=== PATIENT | female | born 2000 | race African-American/Black ===

== ENCOUNTER 2021-05-31 07:14 | Emergency (ER) | payer SELFPAY ==
--- OUTSIDE RECORDS SUMMARY | 2021-05-31 07:18 | XMS REPORT | Continuity of Care Document ---
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 pneumothorax. There is no definite acute osseous abnormality. IMPRESSION: No radiographic evidence of acute cardiopulmonary process. at 5227 Reported and signed by: Oli Oneil M.D. CC: Antwon Raya MD Technologist: Arelis Persaud Trnscrd Date/Time/By: 10/08/2020 (0411) : By: [email or web address] PAGE 1 Signed Report FAX: Antwon Raya MD [place]: St: PRE Name: ANKIT SCHNEIDER [facility] : 2000 Age/S: 20/F [address] [facility] Unit #: [id number] Loc: E.ERS2 [place], [place]: [place] [address] Acct: [id number] Dis Date: Status: PRE ER PHONE #: [phone] Exam Date: 10/08/20202253 FAX #: [phone] Reason: truma EXAMS: CPT CODE: [id number] XR CHEST 1 V 61387 <Continued> Orig Print D/T: S:10/08/2020 (0682) PAGE 2 Signed Report
[2021-05-31 07:41] LABS: Urine Blood Trace-intact (Negative); Urine Glucose Negative (Negative); Urine Protein Negative (Negative); Urine Specific Gravity >=1.030 (1.005-1.030)
[2021-05-31] MEDS ORDERED: DIPHENOX/ATROP SULF 1 TAB PO ONE (07:41)
[2021-05-31] MEDS ORDERED: ONDANSETRON 4 MG/2 ML VIAL ONE (07:41)
[2021-05-31] MEDS ORDERED: NA CHLORIDE 0.9% 1,000 ML ONE (07:41)
[2021-05-31 07:56] LABS: Absolute Lymphocytes (CBC) 0.5 K/uL (0.7-4.9); Hematocrit 37.8 % (36.0-45.0); Lymphocytes % 5.9 % (15.3-44.8); MPV 8.5 fL (7.6-11.3); RBC Red Blood Cell Count 4.99 M/uL (3.86-4.86)
[2021-05-31 08:09] LABS: Albumin 3.3 g/dL (3.4-5.0); Bilirubin Direct 0.2 mg/dL (0-0.2); Bilirubin Total 0.6 mg/dL (0.2-1.0); Potassium 3.6 mmol/L (3.5-5.1); Protein, Total 7.4 g/dL (6.4-8.2)
--- NOTE | 2021-05-31 08:32 | RAD REPORT ---
EXAM DESCRIPTION: CTAbdomen Pelvis W Contrast - 05/31/2021 8:25 am CLINICAL HISTORY: vomiting, diarrhea COMPARISON: No comparisons TECHNIQUE: CT of the abdomen and pelvis was performed. All CT scans are performed using dose optimization technique as appropriate and may include automated exposure control or mA/KV adjustment according to patient size. FINDINGS: Lower chest: No acute abnormality. Liver: No acute abnormality or suspicious lesions. Biliary: No biliary ductal dilatation. Stomach: No significant focal abnormality. Duodenum: No significant focal abnormality. Pancreas: No significant abnormality. Spleen: No significant abnormality. Adrenal: No suspicious lesions. Kidney/ureter: No hydronephrosis. No renal calculi. Retroperitoneum: No retroperitoneal adenopathy. Vascular: No aneurysm. Bowel: No significant focal abnormality.Normal appendix. Peritoneum: Pelvic free fluid which may be physiologic. Bladder: Grossly unremarkable. Reproductive: No adnexal masses. Bones: No acute fracture. Other: n/a IMPRESSION: No acute intra-abdominal or pelvic finding. Normal appendix. Free fluid in the pelvis is likely physiologic.
[2021-05-31 08:45] LABS: Urine Specific Gravity/Preg >1.030 (1.005-1.030)
[2021-05-31 08:50] LABS: SARS-COV-2 RT PCR NEGATIVE (NEGATIVE)
[2021-05-31 08:53] LABS: Urine Bacteria <20 /HPF (<20); Urine Mucus LIGHT /HPF (NONE SEEN); Urine RBC <5 /HPF (NONE SEEN)
[2021-05-31 08:54] LABS: Urine Amorphous Sediment 3+ /HPF (NONE SEEN)
--- NOTE | 2021-05-31 09:11 | ER ---
Nurse's Notes [facility] Name: Jf Jacobo Age: 20 yrs Sex: Female : 2000 Arrival Date: 05/31/2021 Time: 07:20 Bed 5 Private MD: Diagnosis: Vomiting;Diarrhea, unspecified;Dehydration Presentation: 05/31 07:28 Chief complaint: Patient states: dizzy n/v. Coronavirus screen: Vaccine status: Patient velasco reports being unvaccinated. Ebola Screen: Patient denies travel to an Ebola-affected area in the 21 days before illness onset. Initial Sepsis Screen: Does the patient meet any 2 criteria? RR > 20 per min. HR > 90 bpm. Does the patient have a suspected source of infection? No. Patient's initial sepsis screen is negative. Risk Assessment: Do you want to hurt yourself or someone else? Patient reports no desire to harm self or others. Onset of symptoms was May 31, 2021. 07:28 Method Of Arrival: Ambulatory 07:28 Acuity: RAFAEL 3 velasco Triage Assessment: 07:29 General: Appears in no apparent distress. Behavior is calm. Pain: Denies pain. velasco Historical: - Allergies: 07:29 No Known Allergies; velasco - Home Meds: 07:29 None [Active]; velasco - PMHx: 07:29 None; velasco - PSHx: 07:29 None; velasco - Immunization history:: Adult Immunizations up to date. - Social history:: Smoking status: Patient denies any tobacco usage or history of. - Family history:: not pertinent. - Hospitalizations: : No recent hospitalization is reported. Screenin:46 Abuse screen: Denies threats or abuse. Denies injuries from another. Nutritional ic1 screening: No deficits noted. Tuberculosis screening: No symptoms or risk factors identified. Fall Risk None identified. Assessment: 07:45 General: Appears in no apparent distress. Behavior is calm, cooperative. Pain: ic1 Complains of pain in abdomen. Neuro: No deficits noted. Cardiovascular: No deficits noted. Respiratory: No deficits noted. GI: Abdomen is flat, non-distended, Reports lower abdominal pain, upper abdominal pain, cramping, diarrhea, nausea, vomiting. : No deficits noted. EENT: No deficits noted. Derm: No deficits noted. Musculoskeletal: No deficits noted. 10:05 Reassessment: Patient appears in no apparent distress at this time. Patient is alert, ic1 oriented x 3, equal unlabored respirations, skin warm/dry/pink. Patient denies pain at this time. Patient states feeling better. Patient states symptoms have improved. Vital Signs: 07:28 BP 99 / 69; Pulse 123; Resp 20; Temp 98.6(O); Pulse Ox 100% on R/A; Weight 49.44 kg; velasco Height 5 ft. 3 in. (160.02 cm); 10:45 BP 137 / 73; Pulse 107; Resp 18; Pulse Ox 97% on R/A; ic1 07:28 Body Mass Index 19.31 (49.44 kg, 160.02 cm) velasco ED Course: 07:20 Patient arrived in ED. as 07:26 Reza Anderson MD is Attending Physician. rn 07:29 Triage completed. velasco 07:30 Brandan Javier RN is Primary Nurse. jl7 07:46 Patient has correct armband on for positive identification. Bed in low position. Call ic1 light in reach. Side rails up X2. 07:46 Inserted saline lock: 20 gauge in right antecubital area, using aseptic technique. ic1 Blood collected. 08:25 CT Abd/Pelvis - IV Contrast Only In Process Unspecified. EDMS Administered Medications: 07:59 Drug: NS 0.9% 1000 ml Route: IV; Rate: 1000 ml; Site: right antecubital; ic1 07:59 Drug: Zofran (Ondansetron) 4 mg Route: IVP; Site: right antecubital; ic1 07:59 Drug: LoMOTIL (diphenoxylate-atropine) 2 tabs Route: PO; ic1 09:13 Drug: Phenergan (promethazine) 12.5 mg Route: IVP; Site: right antecubital; ic1 Outcome: 09:10 Discharge ordered by . rn 09:43 Discharged to home ambulatory. ic1 09:43 Condition: stable 09:43 Discharge instructions given to patient, Instructed on discharge instructions, follow up and referral plans. Demonstrated understanding of instructions, follow-up care, medications, Prescriptions given X 1. 10:58 Patient left the ED. ss Signatures: Dispatcher [employer] EDMS Roxana Rolon Roman, MD MD rn Julian, Patience, RN RN ss Brandan Javier, RN RN jl7 Valery Bloom, RN RN Ashley Schulte, RN RN ic1
--- NOTE | 2021-05-31 09:11 | EDPHYS ---
Physician Documentation [facility] Name: Jf Jacobo Age: 20 yrs Sex: Female : 2000 Arrival Date: 05/31/2021 Time: 07:20 Bed 5 Private MD: ED Physician Reza Anderson HPI: 05/31 07:39 This 20 yrs old Black Female presents to ER via Ambulatory with complaints of rn Vomiting/Diarrhea. 07:39 The patient presents to the emergency department with nausea, vomiting, diarrhea. rn Onset: The symptoms/episode began/occurred this morning. Possible causes: unknown. The symptoms are aggravated by nothing. The symptoms are alleviated by nothing. Associated signs and symptoms: Pertinent positives: abdominal pain, diarrhea, nausea, vomiting, Pertinent negatives: GI bleeding. Severity of symptoms: At their worst the symptoms were moderate in the emergency department the symptoms are unchanged. The patient has not experienced similar symptoms in the past. The patient has not recently seen a physician. REports feels lightheaded and generalized weakness. Historical: - Allergies: 07:29 No Known Allergies; velasco - Home Meds: 07:29 None [Active]; velasco - PMHx: 07:29 None; velasco - PSHx: 07:29 None; velasco - Immunization history:: Adult Immunizations up to date. - Social history:: Smoking status: Patient denies any tobacco usage or history of. - Family history:: not pertinent. - Hospitalizations: : No recent hospitalization is reported. ROS: 07:39 Constitutional: Negative for fever, chills, and weight loss, Eyes: Negative for injury, rn pain, redness, and discharge, Neck: Negative for injury, pain, and swelling, Cardiovascular: Negative for chest pain, palpitations, and edema, Respiratory: Negative for shortness of breath, cough, wheezing, and pleuritic chest pain, Abdomen/GI: + for abd cramping/vomiting/diarrhea Back: Negative for injury and pain, : Negative for injury, bleeding, discharge, and swelling, MS/Extremity: Negative for injury and deformity, Skin: Negative for injury, rash, and discoloration, Neuro: Negative for headache, numbness, tingling, and seizure. Exam: 07:39 Constitutional: This is a well developed, well nourished patient who is awake, alert, rn and in no acute distress.Ambulatory to room without difficulty. Head/Face: Normocephalic, atraumatic. Eyes: Periorbital areas with no swelling, redness, or edema. Cardiovascular: Tachcyardic, regular. No pulse deficits. Respiratory: No increased work of breathing, no retractions or nasal flaring. Abdomen/GI: soft, non-tender Skin: Warm, dry MS/ Extremity: Pulses equal, no cyanosis. Neuro: Awake and alert, GCS 15 Vital Signs: 07:28 BP 99 / 69; Pulse 123; Resp 20; Temp 98.6(O); Pulse Ox 100% on R/A; Weight 49.44 kg; velasco Height 5 ft. 3 in. (160.02 cm); 10:45 BP 137 / 73; Pulse 107; Resp 18; Pulse Ox 97% on R/A; ic1 07:28 Body Mass Index 19.31 (49.44 kg, 160.02 cm) velasco MDM: 07:26 Patient medically screened. rn 09:09 Differential diagnosis: Nonspecific abd pain, gastritis, appendicitis, diverticulitis, rn viral gastroenteritis, gastroenteritis. Data reviewed: vital signs, nurses notes, lab test result(s), radiologic studies, CT scan, and as a result, I will discharge patient. Counseling: I had a detailed discussion with the patient and/or guardian regarding: the historical points, exam findings, and any diagnostic results supporting the discharge/admit diagnosis, lab results, radiology results, the need for outpatient follow up, to return to the emergency department if symptoms worsen or persist or if there are any questions or concerns that arise at home. Response to treatment: the patient's symptoms have markedly improved after treatment, and as a result, I will discharge patient. Special discussion: Based on the patient's Hx, exam, and Dx evaluation, there is no indication for emergent surgery or inpatient Tx. It is understood by the patient/guardian that if the Sx's persist or worsen they need to return immediately for re-evaluation. I discussed with the patient/guardian in detail that at this point there is no indication for admission to the hospital. It is understood, however, that if the symptoms persist or worsen the patient needs to return immediately for re-evaluation. ED course: NO acute findings on CT abdomen, UPT neg, COVID/Flu neg. Will dc home with prn zofran and return precautions, most likely viral, no indication for Abx. . 05/31 07:33 Order name: Basic Metabolic Panel; Complete Time: 08:33 rn 05/31 07:33 Order name: CBC with Diff rn 05/31 07:33 Order name: Hepatic Function; Complete Time: 08:33 rn 05/31 07:33 Order name: Lipase; Complete Time: 08:33 rn 05/31 07:33 Order name: COVID-19/FLU A+B (Document "Date of Onset" if Symptomatic); Complete Time: rn 08:55 05/31 07:33 Order name: Urine Microscopic Only; Complete Time: 08:55 rn 05/31 07:33 Order name: CT Abd/Pelvis - IV Contrast Only; Complete Time: 08:33 rn 05/31 07:41 Order name: Urine Dipstick-Ancillary; Complete Time: 08:06 EDOK 05/31 07:43 Order name: Urine --Ancillary (enter results); Complete Time: 08:55 05/31 10:52 Order name: CBC Smear Scan EDOK 05/31 07:33 Order name: IV Saline Lock; Complete Time: 07:58 rn 05/31 07:33 Order name: Labs collected and sent; Complete Time: 07:58 rn 05/31 07:33 Order name: Urine Dipstick-Ancillary (obtain specimen); Complete Time: 07:40 rn 05/31 07:33 Order name: Urine Test (obtain specimen); Complete Time: 07:40 rn Administered Medications: 07:59 Drug: NS 0.9% 1000 ml Route: IV; Rate: 1000 ml; Site: right antecubital; ic1 07:59 Drug: Zofran (Ondansetron) 4 mg Route: IVP; Site: right antecubital; ic1 07:59 Drug: LoMOTIL (diphenoxylate-atropine) 2 tabs Route: PO; ic1 09:13 Drug: Phenergan (promethazine) 12.5 mg Route: IVP; Site: right antecubital; ic1 Disposition Summary: 05/31/21 09:10 Discharge Ordered Location: Home rn Problem: new rn Symptoms: have improved rn Condition: Stable rn Diagnosis - Vomiting rn - Diarrhea, unspecified rn - Dehydration rn Followup: rn - With: Private Physician - When: As needed - Reason: Recheck today's complaints, Re-evaluation by your physician Discharge Instructions: - Discharge Summary Sheet rn - Dehydration, Adult rn - Diarrhea, Adult rn - Vomiting, Adult rn Forms: - Medication Reconciliation Form rn - Thank You Letter rn - Antibiotic rn peritoneal dialysis - Prescription Opioid Use rn Prescriptions: - ondansetron 4 mg Oral tablet,disintegrating - take 1 tablet by ORAL route every 8 hours As needed; 15 tablet; Refills: 0, rn Product Selection Permitted Signatures: Dispatcher [employer] Reza Falcon MD MD rn Au-StagerValery RN RN Ashley Schulte RN RN ic1
[2021-05-31] MEDS ORDERED: PROMETHAZINE INJ 25 MG/ML AMP ONE (09:13)
[2021-05-31 10:52] LABS: Blood Morphology Comment NOT SEEN (NOT SEEN); Platelet Estimate ADEQ; White Blood Cell Scan OK (OK)
[2021-05-31 14:24] VITALS: TEMP 98.6
[2021-05-31 14:25] VITALS: BP 137/73; O2SAT 97
== END 2021-05-31 10:58 | disposition home or self-care (01) ==
LOC: ER 07:14
DX: E86.0 Dehydration (principal); R19.7 Diarrhea, unspecified; Z20.822 Contact with and (suspected) exposure to COVID-19
CPT/HCPCS: 0240U; 36415; 74177; 80048; 80076; 81003; 81015; 81025; 83690; 85025; 96374; 96375; 99284; J2405; J2550; J7030; Q9967

== ENCOUNTER 2021-08-24 16:06 | Emergency (ER) | payer BC ==
[2021-08-24 16:51] LABS: Urine Blood Negative (Negative); Urine Glucose Negative (Negative); Urine Protein Negative (Negative); Urine pH 8.5 (5.0-7.0)
[2021-08-24 17:07] LABS: Absolute Lymphocytes (CBC) 1.5 K/uL (0.7-4.9); Hematocrit 35.5 % (36.0-45.0); Lymphocytes % 29.3 % (15.3-44.8); MPV 8.3 fL (7.6-11.3); RBC Red Blood Cell Count 4.86 M/uL (3.86-4.86)
[2021-08-24 17:22] LABS: Urine Bacteria <20 /HPF (<20); Urine Mucus 2+ /HPF (NONE SEEN); Urine RBC <5 /HPF (NONE SEEN)
[2021-08-24 17:35] LABS: BUN Blood Urea Nitrogen 8 mg/dL (7-18); Bicarbonate 24 mmol/L (21-32); Glucose Level 94 mg/dL (74-106); HCG, Quantitative 130841 mIU/mL (1-3); Potassium 4.2 mmol/L (3.5-5.1); Sodium Level 137 mmol/L (136-145)
--- NOTE | 2021-08-24 18:45 | RAD REPORT ---
EXAM DESCRIPTION: US - Matter Ger Tm 1 - 08/24/2021 6:38 pm CLINICAL HISTORY: ABD CRAMPING, Early . COMPARISON: No comparisons FINDINGS: A single gestational sac is seen within the uterus. The shape of the sac is within normal limits for gestational age. Within the sac is a single pole with crown-rump length of 5 mm, cor relating to estimated gestational age of 6 weeks 2 days. Estimated date of delivery is 04/17/2022. Heart rate is 120 BPM. The placenta is not yet developed / visualized due to early gestational age. The maternal adnexa and ovaries are within normal limits. Normal Doppler blood flow was demonstrated to both ovaries. IMPRESSION: Single live early intrauterine gestation with estimated gestational age of 6 weeks 2 day s, RASHIDA 04/17/2022. No unusual or unexpected finding.
--- NOTE | 2021-08-24 18:52 | ER ---
Nurse's Notes [facility] Name: Jf Jacobo Age: 20 yrs Sex: Female : 2000 Arrival Date: 08/24/2021 Time: 16:08 Bed 26 Private MD: Diagnosis: Vomiting;Abdominal pain, unspecified Presentation: 08/24 16:30 Chief complaint: Patient states: N/V and lower abdominal pain x 4-5days, approx 7 weeks ph , denies vaginal bleeding, reports more frequent urination than usual, denies burning. Coronavirus screen: Vaccine status: Patient reports being unvaccinated. Ebola Screen: No symptoms or risks identified at this time. Initial Sepsis Screen: Does the patient meet any 2 criteria? No. Patient's initial sepsis screen is negative. Does the patient have a suspected source of infection? No. Patient's initial sepsis screen is negative. Risk Assessment: Do you want to hurt yourself or someone else? Patient reports no desire to harm self or others. Onset of symptoms was August 24, 2021. 16:30 Method Of Arrival: Ambulatory ph 16:30 Acuity: RAFAEL 3 ph Historical: - Allergies: 16:31 No Known Allergies; ph - PMHx: 16:31 None; ph - PSHx: 16:31 None; ph - Immunization history:: Adult Immunizations unknown. - Social history:: Smoking status: Patient denies any tobacco usage or history of. Screenin:53 Abuse screen: Denies threats or abuse. Denies injuries from another. Nutritional ld1 screening: No deficits noted. Tuberculosis screening: No symptoms or risk factors identified. Fall Risk None identified. Assessment: 16:53 General: Appears in no apparent distress. comfortable, Behavior is calm, cooperative, ld1 appropriate for age. Pain: Denies pain. Neuro: Level of Consciousness is awake, alert, obeys commands, Oriented to person, place, time, situation. Cardiovascular: Capillary refill < 3 seconds Patient's skin is warm and dry. Rhythm is regular. Respiratory: Airway is patent Respiratory effort is even, unlabored. GI: Abdomen is flat, non-distended, Bowel sounds present X 4 quads. Abd is soft and non tender. : No signs and/or symptoms were reported regarding the genitourinary system. : Reports vaginal bleeding that is light flow. EENT: No signs and/or symptoms were reported regarding the EENT system. Derm: No signs and/or symptoms reported regarding the dermatologic system. Musculoskeletal: No signs and/or symptoms reported regarding the musculoskeletal system. Vital Signs: 16:30 BP 117 / 72; Pulse 107; Resp 18; Temp 98.4; Pulse Ox 100% on R/A; Weight 52.16 kg; ph Height 5 ft. 4 in. (162.56 cm); 16:53 BP 101 / 64; Pulse 102; Resp 18; Pulse Ox 100% on R/A; Pain 0/10; ld1 16:30 Body Mass Index 19.74 (52.16 kg, 162.56 cm) ph ED Course: 16:08 Patient arrived in ED. mr 16:23 Mika Cervantes NP is PHCP. pm1 16:23 Misha Mcdonald DO is Attending Physician. pm1 16:31 Triage completed. ph 16:32 Arm band placed on Patient placed in an exam room. ph 16:41 Dianna Pop, REX is Primary Nurse. ld1 16:53 Patient has correct armband on for positive identification. Placed in gown. Bed in low ld1 position. Call light in reach. Side rails up X2. school bus monitor on. Pulse ox on. NIBP on. Door closed. Noise minimized. Warm blanket given. 16:53 Urine Microscopic Only Sent. ld1 16:53 No provider procedures requiring assistance completed. ld1 16:59 Inserted saline lock: 20 gauge in left antecubital area, using aseptic technique. Blood mb7 collected. 16:59 Abo/rh Typing Sent. mb7 16:59 Quantitative Hcg Sent. mb7 16:59 CBC with Diff Sent. mb7 16:59 Basic Metabolic Panel Sent. mb7 18:39 Matter Eval Tm 1 In Process Unspecified. EDMS 19:15 IV discontinued, intact, bleeding controlled, No redness/swelling at site. ld1 Administered Medications: No medications were administered Outcome: 18:51 Discharge ordered by . pm1 19:15 Discharged to home ambulatory, with family. ld1 19:15 Condition: stable 19:15 Discharge instructions given to patient, Instructed on discharge instructions, follow up and referral plans. Demonstrated understanding of instructions, follow-up care. 19:15 Patient left the ED. ld1 Signatures: Dispatcher [employer] HELGA Lopez, Ava mr Mariana Min, RN RN Mika Garcia, [place] DISPATCHER pm1 Dianna Pop RN RN ld1 Li Ava mb7
--- NOTE | 2021-08-24 18:52 | EDPHYS ---
Physician Documentation [facility] Name: Jf Jacobo Age: 20 yrs Sex: Female : 2000 Arrival Date: 08/24/2021 Time: 16:08 Bed 26 Private MD: ED Physician Misha Mcdonald HPI: 08/24 16:30 This 20 yrs old Black Female presents to ER via Ambulatory with complaints of 7wks pm1 , Abdominal Pain, Vomiting. 16:30 The patient presents with abdominal pain suprapubic area. Onset: The symptoms/episode pm1 began/occurred 5 day(s) ago. The symptoms do not radiate. Associated signs and symptoms: Pertinent positives: increased urination, Pertinent negatives: nausea, vomiting, and diarrhea, chest pain, shortness of breath. The symptoms are described as crampy. Modifying factors: The symptoms are alleviated by nothing, the symptoms are aggravated by nothing. Severity of pain: in the emergency department the pain is unchanged. The patient has not experienced similar symptoms in the past. The patient has not recently seen a physician. . Historical: - Allergies: 16:31 No Known Allergies; ph - PMHx: 16:31 None; ph - PSHx: 16:31 None; ph - Immunization history:: Adult Immunizations unknown. - Social history:: Smoking status: Patient denies any tobacco usage or history of. ROS: 16:30 Constitutional: Negative for fever, chills, and weight loss. pm1 16:30 Cardiovascular: Negative for chest pain, palpitations, and edema, Respiratory: Negative for shortness of breath, cough, wheezing, and pleuritic chest pain. 16:30 Back: Negative for injury and pain, : Negative for injury, bleeding, discharge, and swelling, MS/Extremity: Negative for injury and deformity, Skin: Negative for injury, rash, and discoloration, Neuro: Negative for headache, weakness, numbness, tingling, and seizure. 16:30 Abdomen/GI: Positive for abdominal pain, of the suprapubic area, Negative for nausea, vomiting, and diarrhea. 16:30 All other systems are negative. Exam: 16:30 Constitutional: This is a well developed, well nourished patient who is awake, alert, pm1 and in no acute distress. Head/Face: Normocephalic, atraumatic. 16:30 Back: No spinal tenderness. No costovertebral tenderness. Full range of motion. Skin: Warm, dry with normal turgor. Normal color with no rashes, no lesions, and no evidence of cellulitis. MS/ Extremity: Pulses equal, no cyanosis. Neurovascular intact. Full, normal range of motion. 16:30 Eyes: Exam is negative for acute changes, Periorbital structures: appear normal, Extraocular movements: no acute changes, Sclera: no acute changes, icterus, is not appreciated. 16:30 ENT: Exam is negative for acute changes, Mouth: is normal, no acute changes, Lips: normal, moist, Oral mucosa: normal, pink and intact, moist. 16:30 Cardiovascular: Exam negative for acute changes, Rate: normal, Rhythm: regular, Pulses: no pulse deficits are appreciated, Heart sounds: normal, normal S1and S2. 16:30 Respiratory: Exam negative for acute changes, respiratory distress, shortness of breath. 16:30 Abdomen/GI: Inspection: abdomen appears normal, Palpation: abdomen is soft and non-tender, in all quadrants. 16:30 Neuro: Exam negative for acute changes, Orientation: is normal, Mentation: is normal, Motor: is normal, moves all fours. Vital Signs: 16:30 BP 117 / 72; Pulse 107; Resp 18; Temp 98.4; Pulse Ox 100% on R/A; Weight 52.16 kg; ph Height 5 ft. 4 in. (162.56 cm); 16:53 BP 101 / 64; Pulse 102; Resp 18; Pulse Ox 100% on R/A; Pain 0/10; ld1 16:30 Body Mass Index 19.74 (52.16 kg, 162.56 cm) ph MDM: 16:30 Patient medically screened. pm1 18:48 Data reviewed: vital signs. Data interpreted: Pulse oximetry: on room air is 100 %. pm1 Interpretation: normal. Counseling: I had a detailed discussion with the patient and/or guardian regarding: the historical points, exam findings, and any diagnostic results supporting the discharge/admit diagnosis, lab results, radiology results, the need for outpatient follow up, to return to the emergency department if symptoms worsen or persist or if there are any questions or concerns that arise at home. 08/24 16:30 Order name: Abo/rh Typing; Complete Time: 18:12 pm1 08/24 16:30 Order name: Basic Metabolic Panel; Complete Time: 17:40 pm1 08/24 16:30 Order name: CBC with Diff; Complete Time: 17:40 pm1 08/24 16:30 Order name: Quantitative Hcg; Complete Time: 17:40 pm1 08/24 16:30 Order name: Urine Microscopic Only; Complete Time: 17:40 pm1 08/24 16:52 Order name: Urine Dipstick-Ancillary; Complete Time: 16:59 EDMS 08/24 16:30 Order name: IV Saline Lock; Complete Time: 16:53 pm1 08/24 16:30 Order name: Labs collected and sent; Complete Time: 16:53 pm1 08/24 16:30 Order name: NPO; Complete Time: 16:53 pm1 08/24 16:30 Order name: Urine Dipstick-Ancillary (obtain specimen); Complete Time: 16:53 pm1 08/24 16:30 Order name: Urine Test (obtain specimen); Complete Time: 16:53 pm1 08/24 16:54 Order name: Urine --Ancillary (enter results); Complete Time: 17:10 bd 08/24 18:39 Order name: Matter Eval Tm 1; Complete Time: 18:48 EDMS Administered Medications: No medications were administered Disposition: 21:37 Co-signature as Attending Physician, Misha LEON was immediately available on-site ms3 in the Emergency Department for consultation in the care of the patient.. Disposition Summary: 08/24/21 18:51 Discharge Ordered Location: Home pm1 Problem: new pm1 Symptoms: have improved pm1 Condition: Stable pm1 Diagnosis - Vomiting pm1 - Abdominal pain, unspecified pm1 Followup: pm1 - With: Emergency Department - When: As needed - Reason: Worsening of condition Followup: pm1 - With: Private Physician - When: 2 - 3 days - Reason: Recheck today's complaints, Continuance of care, Re-evaluation by your physician Discharge Instructions: - Discharge Summary Sheet pm1 - Abdominal Pain During pm1 - Vomiting, Adult pm1 Forms: - Medication Reconciliation Form pm1 - Thank You Letter pm1 - Antibiotic Education pm1 - Prescription Opioid Use pm1 Signatures: Dispatcher [employer] Mariana Chacon RN RN ph Mika Cervantes, MOLDING MANAGER MOLDING MANAGER pm1 Misha Mcdonald DO DO ms3 Corrections: (The following items were deleted from the chart) 18:39 17:42 Transvaginal Ob+US.RAD.BRZ ordered. EDMS EDMS
[2021-08-25 03:02] VITALS: TEMP 98.4; O2SAT 100
[2021-08-25 03:04] VITALS: BP 101/64
== END 2021-08-24 19:15 | disposition home or self-care (01) ==
LOC: ER 16:06
DX: O21.9 Vomiting of pregnancy, unspecified (principal); Z3A.01 Less than 8 weeks gestation of pregnancy
CPT/HCPCS: 36415; 76801; 80048; 81003; 81015; 81025; 84702; 85025; 86900; 86901; 99284

== ENCOUNTER 2021-09-07 11:01 | Emergency (ER) | payer BC ==
[2021-09-07 11:38] LABS: Urine Blood Negative (Negative); Urine Glucose Negative (Negative); Urine Protein Trace (Negative); Urine Specific Gravity >=1.030 (1.005-1.030)
--- NOTE | 2021-09-07 11:47 | RAD REPORT ---
EXAM DESCRIPTION: US - 1St Trimest Single 1St Fetus - 09/07/2021 11:25 am CLINICAL HISTORY: with vaginal bleeding COMPARISON: August 24, 2021 FINDINGS: The uterus measures centimeters. A normal appearing gestational sac is present within th e endometrium. Within this is a yolk sac and pole with a crown-rump length 2.1 centimeters. Ca rdiac activity 167 beats per minute. Small subchorionic bleed Right and left ovary appear normal. The right and left adnexa are unremarkable No significant free fluid is seen. IMPRESSION: Single live intrauterine with an estimated gestational age 8 weeks 4 days RASHIDA 04/15/2022
[2021-09-07 11:50] LABS: Urine Bacteria <20 /HPF (<20); Urine RBC <5 /HPF (NONE SEEN)
[2021-09-07 12:35] LABS: Absolute Lymphocytes (CBC) 1.2 K/uL (0.7-4.9); Hematocrit 32.7 % (36.0-45.0); Lymphocytes % 24.2 % (15.3-44.8); MPV 8.6 fL (7.6-11.3); RBC Red Blood Cell Count 4.54 M/uL (3.86-4.86)
[2021-09-07 13:06] LABS: BUN Blood Urea Nitrogen 9 mg/dL (7-18); Bicarbonate 26 mmol/L (21-32); Glucose Level 83 mg/dL (74-106); HCG, Quantitative > 200000 mIU/mL (1-3); Potassium 3.5 mmol/L (3.5-5.1); Sodium Level 136 mmol/L (136-145)
--- NOTE | 2021-09-07 13:19 | ER ---
Nurse's Notes [facility] Name: Jf Jacobo Age: 21 yrs Sex: Female : 2000 Arrival Date: 09/07/2021 Time: 11:03 Bed 16 Private MD: Diagnosis: Threatened Presentation: 09/07 11:07 Chief complaint: Patient states: pt is approximately 8 weeks and noticed blood vg1 during urination and when wiped stated color of blood was pink. States NV and lower ABD pain. Coronavirus screen: Vaccine status: Patient reports being unvaccinated. Client denies travel out of the [place] in the last 14 days. Ebola Screen: Patient denies exposure to infectious person. Patient denies travel to an Ebola-affected area in the 21 days before illness onset. Initial Sepsis Screen: Does the patient meet any 2 criteria? No. Patient's initial sepsis screen is negative. Does the patient have a suspected source of infection? No. Patient's initial sepsis screen is negative. Risk Assessment: Do you want to hurt yourself or someone else? Patient reports no desire to harm self or others. Onset of symptoms was September 07, 2021. 11:07 Method Of Arrival: Ambulatory vg1 11:07 Acuity: RAFAEL 3 vg1 Triage Assessment: 11:10 General: Appears in no apparent distress. comfortable, Behavior is calm, cooperative. vg1 Pain: Complains of pain in right lower quadrant and left lower quadrant Pain currently is 5 out of 10 on a pain scale. : Reports vaginal bleeding that is light flow, pink in color Denies burning with urination. 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 - Social history:: Smoking status: Patient denies any tobacco usage or history of. Screenin:43 Abuse screen: Denies threats or abuse. Nutritional screening: No deficits noted. ap3 Tuberculosis screening: No symptoms or risk factors identified. Fall Risk None identified. Assessment: 11:42 General: Appears in no apparent distress. distressed. Pain: Denies pain. Neuro: Level ap3 of Consciousness is awake, alert, obeys commands, Oriented to person, place, time, situation, Gait is steady, Speech is normal. Cardiovascular: Patient's skin is warm and dry. Respiratory: Airway is patent Respiratory effort is even, unlabored, Respiratory pattern is regular, symmetrical. : Reports discharge, from vagina that is bloody. 12:22 Reassessment: Patient appears in no apparent distress at this time. Patient and/or ld1 family updated on plan of care and expected duration. Pain level reassessed. 13:36 Reassessment: Patient appears in no apparent distress at this time. No changes from ld1 previously documented assessment. Patient and/or family updated on plan of care and expected duration. Pain level reassessed. Vital Signs: 11:07 BP 116 / 63; Pulse 105; Resp 16; Temp 99.1(TE); Pulse Ox 100% ; Weight 53.07 kg; Height vg1 5 ft. 3 in. (160.02 cm); Pain 5/10; 11:41 BP 111 / 71; Pulse 97; Pulse Ox 100% on R/A; ap3 12:22 BP 103 / 68; Pulse 83; Resp 18; Pulse Ox 100% on R/A; ld1 13:36 BP 99 / 68; Pulse 82; Resp 18; Pulse Ox 100% on R/A; Pain 0/10; ld1 11:07 Body Mass Index 20.73 (53.07 kg, 160.02 cm) vg1 ED Course: 11:03 Patient arrived in ED. mr 11:06 Mika Cervantes, EKESHA is PHCP. pm1 11:06 Reza Anderson MD is Attending Physician. pm1 11:10 Triage completed. vg1 11:10 Arm band placed on. vg1 11:27 1St Trimest Single 1St Fetus In Process Unspecified. EDMS 11:27 Jeanette Rosas, REX is Primary Nurse. ap3 11:40 Patient has correct armband on for positive identification. Bed in low position. Call 5 light in reach. Warm blanket given. Pulse ox on. NIBP on. 11:40 Urine Microscopic Only Sent. mh5 11:40 Urine collected: clean catch specimen, clear. mh5 11:46 Inserted saline lock: 20 gauge in left antecubital area, using aseptic technique. Blood zm collected. 12:26 Primary Nurse role handed off by Jeanette Rosas RN ld1 12:26 Dianna Pop, RN is Primary Nurse. ld1 13:36 No provider procedures requiring assistance completed. IV discontinued, intact, ld1 bleeding controlled, No redness/swelling at site. Administered Medications: No medications were administered Outcome: 13:18 Discharge ordered by MD. pm1 13:36 Discharged to home ambulatory. ld1 13:36 Condition: good 13:36 Discharge instructions given to patient, Instructed on discharge instructions, follow up and referral plans. Demonstrated understanding of instructions, follow-up care. 13:36 Patient left the ED. ld1 Signatures: Dispatcher [employer] EDGA JohnAva mr CervantesMika, LOSS CONTROL MANAGER LOSS CONTROL MANAGER 1 Angelic Rolon [facility] Jeanette Rosas, RN RN [email or web address] Veronique Cruz RN RN 1 Dianna Pop, REX RN ld1 Xin Rolon
--- NOTE | 2021-09-07 13:19 | EDPHYS ---
Physician Documentation [facility] Name: Jf Jacobo Age: 21 yrs Sex: Female : 2000 Arrival Date: 09/07/2021 Time: 11:03 Bed 16 Private MD: ED Physician Reza Anderson HPI: 09/07 11:11 This 21 yrs old Black Female presents to ER via Ambulatory with complaints of Vaginal pm1 Bleeding, + Preg <12wks. 11:11 The patient presents to the emergency department with vaginal bleeding, described as pm1 spotting. The estimated gestational age is 8 weeks. course: care: at a clinic, Leakage of Fluid: none appreciated, Risk/complications: no obvious risks or complications are appreciated. Previous pregnancies: in previous pregnancies patient has had no complications. Associated signs and symptoms: Pertinent negatives: abdominal pain, dysuria, fever, nausea, vomiting. The patient has experienced similar episodes in the past, a few times. The patient has not recently seen a physician. 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 - Social history:: Smoking status: Patient denies any tobacco usage or history of. ROS: 11:11 Constitutional: Negative for fever, chills, and weight loss, Cardiovascular: Negative pm1 for chest pain, palpitations, and edema, Respiratory: Negative for shortness of breath, cough, wheezing, and pleuritic chest pain. 11:11 Abdomen/GI: Negative for abdominal pain, nausea, vomiting, diarrhea, and constipation, Back: Negative for injury and pain. 11:11 MS/Extremity: Negative for injury and deformity, Skin: Negative for injury, rash, and discoloration. 11:11 Neuro: Negative for headache, weakness, numbness, tingling, and seizure. 11:11 : Positive for vaginal bleeding, Negative for urinary symptoms. 11:11 All other systems are negative. Exam: 11:11 Constitutional: This is a well developed, well nourished patient who is awake, alert, pm1 and in no acute distress. Head/Face: Normocephalic, atraumatic. 11:11 Back: No spinal tenderness. No costovertebral tenderness. Full range of motion. Skin: Warm, dry with normal turgor. Normal color with no rashes, no lesions, and no evidence of cellulitis. MS/ Extremity: Pulses equal, no cyanosis. Neurovascular intact. Full, normal range of motion. 11:11 Cardiovascular: Exam negative for acute changes, Rate: normal, Rhythm: regular, Pulses: no pulse deficits are appreciated. 11:11 Respiratory: Exam negative for acute changes, respiratory distress, shortness of breath. 11:11 Abdomen/GI: Exam negative for acute changes, Inspection: abdomen appears normal, Palpation: abdomen is soft and non-tender, in all quadrants. 11:11 Neuro: Exam negative for acute changes, Orientation: is normal, Mentation: is normal, Motor: is normal, moves all fours. Vital Signs: 11:07 BP 116 / 63; Pulse 105; Resp 16; Temp 99.1(TE); Pulse Ox 100% ; Weight 53.07 kg; Height vg1 5 ft. 3 in. (160.02 cm); Pain 5/10; 11:41 BP 111 / 71; Pulse 97; Pulse Ox 100% on R/A; ap3 12:22 BP 103 / 68; Pulse 83; Resp 18; Pulse Ox 100% on R/A; ld1 13:36 BP 99 / 68; Pulse 82; Resp 18; Pulse Ox 100% on R/A; Pain 0/10; ld1 11:07 Body Mass Index 20.73 (53.07 kg, 160.02 cm) vg1 MDM: 11:11 Patient medically screened. pm1 13:17 Data reviewed: vital signs. Data interpreted: Pulse oximetry: on room air is 100 %. pm1 Interpretation: normal. Counseling: I had a detailed discussion with the patient and/or guardian regarding: the historical points, exam findings, and any diagnostic results supporting the discharge/admit diagnosis, the need for outpatient follow up, an OB/Gyne specialist, to return to the emergency department if symptoms worsen or persist or if there are any questions or concerns that arise at home. 09/07 11:11 Order name: Abo/rh Typing pm1 05/02 11:11 Order name: Basic Metabolic Panel; Complete Time: 13:10 pm1 09/07 11:11 Order name: CBC with Diff; Complete Time: 12:43 pm1 09/07 11:11 Order name: Quantitative Hcg; Complete Time: 13:10 pm1 09/07 11:11 Order name: Urine Microscopic Only; Complete Time: 11:55 pm1 09/07 11:38 Order name: Urine Dipstick-Ancillary; Complete Time: 11:41 EDMS 09/07 11:11 Order name: IV Saline Lock; Complete Time: 11:41 pm1 09/07 11:11 Order name: Labs collected and sent; Complete Time: 13:03 pm1 09/07 11:11 Order name: NPO; Complete Time: 11:41 pm1 09/07 11:11 Order name: Urine Dipstick-Ancillary (obtain specimen); Complete Time: 11:39 pm1 09/07 11:27 Order name: 1St Trimest Single 1St Fetus; Complete Time: 11:55 EDMS 09/07 11:48 Order name: Urine --Ancillary (enter results) eb Administered Medications: No medications were administered Disposition: 18:49 Co-signature as Attending Physician, Reza Anderson MD. rn Disposition Summary: 09/07/21 13:18 Discharge Ordered Location: Home pm1 Problem: new pm1 Symptoms: have improved pm1 Condition: Stable pm1 Diagnosis - Threatened pm1 Followup: pm1 - With: Emergency Department - When: As needed - Reason: Worsening of condition Followup: pm1 - With: Private Physician - When: 2 - 3 days - Reason: Recheck today's complaints, Continuance of care, Re-evaluation by your physician Discharge Instructions: - Discharge Summary Sheet pm1 - Threatened Miscarriage pm1 - Activity Restriction During pm1 Forms: - Medication Reconciliation Form pm1 - Thank You Letter pm1 - Work release form pm1 - Antibiotic Education pm1 - Prescription Opioid Use pm1 Signatures: Dispatcher [employer] EDReza Bertrand MD MD rn Marinas, Patrick, NP INVESTIGATION MANAGER pm1 Veronique Cruz, RN RN vg1 Corrections: (The following items were deleted from the chart) 11:27 11:06 Transvaginal Ob+US.RAD.BRZ ordered. EDMS EDMS
[2021-09-07 15:53] VITALS: TEMP 99.1; O2SAT 100
[2021-09-07 15:56] VITALS: BP 99/68
== END 2021-09-07 13:36 | disposition home or self-care (01) ==
LOC: ER 11:01
DX: O20.0 Threatened abortion (principal); Z3A.08 8 weeks gestation of pregnancy
CPT/HCPCS: 36415; 76801; 80048; 81003; 81015; 81025; 84702; 85025; 86900; 86901; 99284

== ENCOUNTER 2021-10-19 21:48 | Emergency (ER) | payer BC ==
--- NOTE | 2021-10-20 00:37 | EDPHYS ---
Physician Documentation [facility] Name: Jf Jacobo Age: 21 yrs Sex: Female : 2000 Arrival Date: 10/19/2021 Time: 22:51 Bed 20 Private MD: ED Physician Rodrigo Harrison HPI: 10/20 00:09 This 21 yrs old Black Female presents to ER via Ambulatory with complaints of Low Back silvano Pain, Abdominal Pain. 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 - Social history:: Smoking status: Patient denies any tobacco usage or history of. ROS: 10/20 00:12 Constitutional: Negative for fever, chills, and weight loss, Eyes: Negative for injury, silvano pain, redness, and discharge, ENT: Negative for injury, pain, and discharge, Neck: Negative for injury, pain, and swelling, Cardiovascular: Negative for chest pain, palpitations, and edema, Respiratory: Negative for shortness of breath, cough, wheezing, and pleuritic chest pain, Back: Negative for injury and pain, : Negative for injury, bleeding, discharge, and swelling, MS/Extremity: Negative for injury and deformity, Skin: Negative for injury, rash, and discoloration, Neuro: Negative for headache, weakness, numbness, tingling, and seizure. Abdomen/GI: Positive for abdominal pain, of the right lower quadrant. Exam: 00:12 Constitutional: This is a well developed, well nourished patient who is awake, alert, silvano and in no acute distress. Head/Face: Normocephalic, atraumatic. Eyes: Pupils equal round and reactive to light, extra-ocular motions intact. Lids and lashes normal. Conjunctiva and sclera are non-icteric and not injected. Cornea within normal limits. Periorbital areas with no swelling, redness, or edema. ENT: Nares patent. No nasal discharge, no septal abnormalities noted. Tympanic membranes are normal and external auditory canals are clear. Oropharynx with no redness, swelling, or masses, exudates, or evidence of obstruction, uvula midline. Mucous membranes moist. Neck: Trachea midline, no thyromegaly or masses palpated, and no cervical lymphadenopathy. Supple, full range of motion without nuchal rigidity, or vertebral point tenderness. No Meningismus. Chest/axilla: Normal chest wall appearance and motion. Nontender with no deformity. No lesions are appreciated. Cardiovascular: Regular rate and rhythm with a normal S1 and S2. No gallops, murmurs, or rubs. Normal PMI, no JVD. No pulse deficits. Respiratory: Lungs have equal breath sounds bilaterally, clear to auscultation and percussion. No rales, rhonchi or wheezes noted. No increased work of breathing, no retractions or nasal flaring. Back: No spinal tenderness. No costovertebral tenderness. Full range of motion. Skin: Warm, dry with normal turgor. Normal color with no rashes, no lesions, and no evidence of cellulitis. MS/ Extremity: Pulses equal, no cyanosis. Neurovascular intact. Full, normal range of motion. Neuro: Awake and alert, GCS 15, oriented to person, place, time, and situation. Cranial nerves II-XII grossly intact. Motor strength 5/5 in all extremities. Sensory grossly intact. Cerebellar exam normal. Normal gait. Psych: Awake, alert, with orientation to person, place and time. Behavior, mood, and affect are within normal limits. 00:12 Abdomen/GI: Inspection: gravid appearance, is noted, Bowel sounds: normal, Palpation: soft, in all quadrants, mild abdominal tenderness, in the right lower quadrant, Liver: no appreciated palpable abnormalities, Hernia: not appreciated. Vital Signs: 10/19 23:22 BP 118 / 73; Pulse 99; Resp 16 S; Temp 99(TE); Pulse Ox 99% on R/A; Weight 51.26 kg bb (R); Height 5 ft. 4 in. (162.56 cm) (R); Pain 10/16; 10/20 00:56 BP 116 / 70; Pulse 96; Resp 16 S; Pulse Ox 100% on R/A; bb 10/19 23:22 Body Mass Index 19.40 (51.26 kg, 162.56 cm) bb MDM: 10/19 23:58 Patient medically screened. [facility] 10/20 00:13 Data reviewed: vital signs, nurses notes, lab test result(s), urinalysis. Data [facility] interpreted: environmental monitoring technician: rate is 99 beats/min, rhythm is regular, Pulse oximetry: on room air is 99 %. Counseling: I had a detailed discussion with the patient and/or guardian regarding: the historical points, exam findings, and any diagnostic results supporting the discharge/admit diagnosis, lab results, the need for outpatient follow up, for definitive care, an OB/Gyne specialist. 10/20 00:39 Order name: Urine Dipstick-Ancillary [facility] 10/20 00:09 Order name: FHT's; Complete Time: 00:50 [facility] 10/20 00:12 Order name: Urine Dipstick-Ancillary (obtain specimen); Complete Time: 00:50 [facility] 10/20 00:39 Order name: Urine --Ancillary (enter results) wm Administered Medications: 00:50 Drug: Augmentin (Amoxicillin-Clavulanate) 875 mg Route: PO; bb 00:55 Follow up: Response: No adverse reaction bb Disposition Summary: 10/20/21 00:36 Discharge Ordered Location: Home [facility] Problem: new [facility] Symptoms: have improved silvano Condition: Stable silvano Diagnosis - Acute frontal sinusitis silvano - Acute maxillary sinusitis [facility] - 14 weeks gestation of silvano Followup: silvano - With: Private Physician - When: 2 - 3 days - Reason: Recheck today's complaints, Continuance of care, Re-evaluation by your physician Discharge Instructions: - Discharge Summary Sheet [facility] - Care silvano - Sinusitis, Adult silvano - Sinusitis, Adult, [id number] [facility] - Second Trimester of silvano Forms: - Medication Reconciliation Form [facility] - Thank You Letter silvano - Antibiotic Education silvano - Prescription Opioid Use [facility] Prescriptions: - Augmentin 875-125 mg Oral Tablet - take 1 tablet by ORAL route every 12 hours for 10 days; 20 tablet; Refills: 0, silvano Product Selection Permitted Signatures: Dispatcher [employer] Rodrigo Correa MD MD cha Ballard, Brenda, RN RN bb
--- NOTE | 2021-10-20 00:37 | ER ---
Nurse's Notes [facility] Name: Jf Jacobo Age: 21 yrs Sex: Female : 2000 Arrival Date: 10/19/2021 Time: 22:51 Bed 20 Private MD: Diagnosis: Acute frontal sinusitis;Acute maxillary sinusitis;14 weeks gestation of Presentation: 10/19 23:22 Chief complaint: Patient states: she has had a sinus infection for a couple of weeks bb yesterday her nose was bleeding and yesterday she started having right flank pain denies dysuria also she is 14 weeks . Coronavirus screen: At this time, the client does not indicate any symptoms associated with coronavirus-19. Ebola Screen: No symptoms or risks identified at this time. Initial Sepsis Screen: Does the patient meet any 2 criteria? No. Patient's initial sepsis screen is negative. Does the patient have a suspected source of infection? No. Patient's initial sepsis screen is negative. Risk Assessment: Do you want to hurt yourself or someone else? Patient reports no desire to harm self or others. Onset of symptoms was October 2021. 23:22 Method Of Arrival: Ambulatory bb 23:22 Acuity: RAFAEL 3 bb Triage Assessment: 23:24 General: Appears in no apparent distress. slender, Behavior is calm, cooperative. Pain: bb Complains of pain in right flank Pain currently is 6 out of 10 on a pain scale. Neuro: Level of Consciousness is awake, alert, obeys commands, Oriented to person, place, time, situation. Cardiovascular: Capillary refill < 3 seconds Patient's skin is warm and dry. Respiratory: Respiratory effort is even, unlabored, Respiratory pattern is regular. GI: Abdomen is non-distended. : Denies burning with urination. Musculoskeletal: Circulation, motion, and sensation intact. 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 - Social history:: Smoking status: Patient denies any tobacco usage or history of. Screenin/14 00:00 Abuse screen: Denies threats or abuse. Nutritional screening: No deficits noted. bb Tuberculosis screening: No symptoms or risk factors identified. Fall Risk None identified. Assessment: 00:00 Reassessment: No changes from previously documented assessment. Patient is alert, bb oriented x 3, equal unlabored respirations, skin warm/dry/pink. see triage assessment. 00:55 Reassessment: Patient is alert, oriented x 3, equal unlabored respirations, skin bb warm/dry/pink. pt verbalized understanding of and agrees to plan of care discharge instructions given pt ambulated with steady gait to exit accompanied by spouse. Vital Signs: 10/19 23:22 BP 118 / 73; Pulse 99; Resp 16 S; Temp 99(TE); Pulse Ox 99% on R/A; Weight 51.26 kg bb (R); Height 5 ft. 4 in. (162.56 cm) (R); Pain 6/10; 10/20 00:56 BP 116 / 70; Pulse 96; Resp 16 S; Pulse Ox 100% on R/A; bb 10/19 23:22 Body Mass Index 19.40 (51.26 kg, 162.56 cm) bb Vitals: 00:50 Heart Tones 142. bb ED Course: 10/19 22:51 Patient arrived in ED. [id number] 23:24 Triage completed. bb 23:24 Arm band placed on Patient placed in waiting room, Patient notified of wait time. bb 23:58 Rodrigo Harrison MD is Attending Physician. [facility] 10/20 00:00 Patient has correct armband on for positive identification. Bed in low position. Call bb light in reach. Side rails up X 1. Adult w/ patient. 00:32 Angela Alvares RN is Primary Nurse. bb 00:56 No provider procedures requiring assistance completed. Patient did not have IV access bb during this emergency room visit. Administered Medications: 00:50 Drug: Augmentin (Amoxicillin-Clavulanate) 875 mg Route: PO; bb 00:55 Follow up: Response: No adverse reaction bb Outcome: 00:36 Discharge ordered by . [facility] 00:56 Discharged to home ambulatory, with family. bb 00:56 Condition: stable 00:56 Discharge instructions given to patient, Instructed on discharge instructions, follow up and referral plans. medication usage, Demonstrated understanding of instructions, follow-up care, medications, Prescriptions given X 1. 00:57 Patient left the ED. bb Signatures: Rodrigo Harrison MD MD cha Ballard, Brenda, RN RN Michelle Rao jj6
[2021-10-20 00:38] LABS: Urine Blood Negative (Negative); Urine Glucose Negative (Negative); Urine Protein Negative (Negative); Urine Specific Gravity 1.025 (1.005-1.030)
[2021-10-20] MEDS ORDERED: AMOX/K CLAV 875 MG TAB ONE (00:46)
[2021-10-20 01:01] VITALS: TEMP 99
[2021-10-20 01:04] VITALS: BP 116/70; O2SAT 100
[2021-10-20 01:46] LABS: Urine Specific Gravity/Preg 1.025 (1.005-1.030)
== END 2021-10-20 00:57 | disposition home or self-care (01) ==
LOC: ER 21:48
DX: O99.511 Diseases of the respiratory system complicating pregnancy, first trimester (principal); J01.10 Acute frontal sinusitis, unspecified; J01.00 Acute maxillary sinusitis, unspecified
CPT/HCPCS: 81003; 81025; 99283

== ENCOUNTER 2021-12-07 03:49 | Emergency (ER) | payer BC, OTHER ==
[2021-12-07] MEDS ORDERED: ACETAMINOPHEN 500 MG TAB ONE (04:16)
[2021-12-07] MEDS ORDERED: NA CHLORIDE 0.9% 1,000 ML ONE (04:49)
[2021-12-07 04:52] LABS: Urine Blood Negative (Negative); Urine Glucose Negative (Negative); Urine Protein 1+ (Negative); Urine Specific Gravity >=1.030 (1.005-1.030); Urine pH 6.5 (5.0-7.0)
[2021-12-07 04:55] LABS: Absolute Lymphocytes (CBC) 0.4 K/uL (0.7-4.9); Hematocrit 28.2 % (36.0-45.0); Lymphocytes % 5.8 % (15.3-44.8); MCV 69.9 fL (80-100); MPV 8.1 fL (7.6-11.3); RBC Red Blood Cell Count 4.03 M/uL (3.86-4.86)
[2021-12-07 05:00] LABS: Protime INR 1.19
[2021-12-07 05:12] LABS: Albumin 2.6 g/dL (3.4-5.0); Bilirubin Total 0.2 mg/dL (0.2-1.0); Potassium 3.6 mmol/L (3.5-5.1); Protein, Total 6.7 g/dL (6.4-8.2)
--- NOTE | 2021-12-07 06:28 | ER ---
Nurse's Notes [facility] Name: Jf Jacobo Age: 21 yrs Sex: Female : 2000 Arrival Date: 12/07/2021 Time: 03:51 Bed 14 Private MD: Diagnosis: SARS-associated coronavirus as the cause of diseases classified elsewhere; Presentation: 12/07 03:57 Chief complaint: Patient states: Headache , back pain, vomiting and fever since ke1 yesterday , Temp this morning 101.3. 20 weeks . Coronavirus screen: Vaccine status: Patient reports being unvaccinated. Ebola Screen: No symptoms or risks identified at this time. Initial Sepsis Screen: Does the patient meet any 2 criteria? No. Patient's initial sepsis screen is negative. Initial Sepsis Screen: Does the patient have a suspected source of infection? No. Patient's initial sepsis screen is negative. Risk Assessment: Do you want to hurt yourself or someone else? Patient reports no desire to harm self or others. Onset of symptoms was December 05, 2021. 03:57 Method Of Arrival: Ambulatory ke 03:57 Acuity: RAFAEL 3 ke1 Triage Assessment: 04:03 Headache History: Denies prior headaches. General: Appears uncomfortable, Behavior is ke1 appropriate for age. Pain: Complains of pain in back Pain currently is 8 out of 10 on a pain scale. at worst was 8 out of 10 on a pain scale. level that patient reports is acceptable is 4 out of 10 on a pain scale. Pain began gradually, Also complains of nausea, vomiting. EENT:. Neuro: Level of Consciousness is awake, alert, Oriented to person, place, time, situation. 04:59 GI: Abdomen is round 20 weeks. 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 - Social history:: Smoking status: Patient denies any tobacco usage or history of. Screenin:57 Abuse screen: Denies threats or abuse. Nutritional screening: No deficits noted. ke1 Tuberculosis screening: No symptoms or risk factors identified. Fall Risk None identified. Vital Signs: 03:57 BP 111 / 59; Pulse 136; Resp 18; Temp 99.5(O); Pulse Ox 100% ; Weight 56.7 kg; Height 5 ke1 ft. 4 in. (162.56 cm); Pain 8/10; 06:01 BP 113 / 66; Pulse 118; Resp 18; Temp 98.6(O); Pulse Ox 98% on R/A; Pain 0/10; ke1 03:57 Body Mass Index 21.46 (56.70 kg, 162.56 cm) ke1 Vitals: 05:58 Heart Tones 120. ke1 ED Course: 03:51 Patient arrived in ED. ja2 03:53 Sergio Ramirez MD is Attending Physician. kdr 03:57 Emelina Marroquin, REX is Primary Nurse. ke1 04:02 Triage completed. ke1 04:20 Flu Sent. ke1 04:20 COVID-19 SARS RT PCR (Document "Date of Onset" if Symptomatic) Sent. ke1 04:40 Inserted saline lock: 20 gauge in left antecubital area, using aseptic technique. ke1 05:04 Bed in low position. Call light in reach. ke1 05:04 Arm band placed on. ke1 05:10 Chest Single View XRAY In Process Unspecified. EDMS 06:44 No provider procedures requiring assistance completed. IV discontinued, intact, ll3 bleeding controlled, No redness/swelling at site. Pressure dressing applied. Administered Medications: 04:08 Drug: Tylenol 1000 mg Route: PO; ke1 04:40 Drug: NS 0.9% 1000 ml Route: IV; Rate: 1 bolus; Site: left antecubital; ke1 06:45 Follow up: Response: No adverse reaction; IV Status: Infusion continued; IV Intake: ll3 1000ml Medication: 06:45 VIS not applicable for this client. ll3 Intake: 06:45 IV: 1000ml; Total: 1000ml. ll3 Outcome: 06:28 Discharge ordered by . kdr 06:44 Discharged to home ambulatory, with significant other. ll3 06:44 Condition: stable 06:44 Discharge instructions given to patient, significant other, Instructed on discharge instructions, follow up and referral plans. medication usage, Demonstrated understanding of instructions, follow-up care, medications, Prescriptions given X 1. 06:45 Patient left the ED. ll3 Signatures: Dispatcher [employer] Sergio Conway MD MD kdr Alexander, Jessica ja2 Loubet, Lynsea, RN RN ll3 Emelina Marroquin RN RN ke1 Corrections: (The following items were deleted from the chart) 04:58 04:55 GI: Reports ke1 ke1 04:59 03:57 Chief complaint: Patient states: Headache , back pain, vomiting and fever since ke1 yesterday , Temp this morning 101.3 ke1
--- NOTE | 2021-12-07 06:28 | EDPHYS ---
Physician Documentation [facility] Name: Jf Jacobo Age: 21 yrs Sex: Female : 2000 Arrival Date: 12/07/2021 Time: 03:51 Bed 14 Private MD: ED Physician Sergio Ramirez HPI: 12/07 05:21 This 21 yrs old Black Female presents to ER via Ambulatory with complaints of Fever, kdr Headache, Low Back Pain, Leg Pain. 05:21 Since feeling generally ill since yesterday. She has had generalized body aches and kdr headache. She has had subjective fever. He is also having low back pain. Patient is 7 months . Onset: The symptoms/episode began/occurred gradually, yesterday. Severity of symptoms: At their worst the symptoms were mild just prior to arrival, in the emergency department the symptoms are unchanged. The patient has not experienced similar symptoms in the past. The patient has not recently seen a physician. 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 - Social history:: Smoking status: Patient denies any tobacco usage or history of. ROS: 05:21 Constitutional: Negative for weight loss -patient has had subjective fever and chills kdr Eyes: Negative for injury, pain, redness, and discharge, Neck: Negative for injury, pain, and swelling, Cardiovascular: Negative for chest pain, palpitations, and edema, Abdomen/GI: Negative for abdominal pain, nausea, vomiting, diarrhea, and constipation, Back: Negative for injury and pain, : Negative for injury, bleeding, discharge, and swelling, MS/Extremity: Negative for injury and deformity, Skin: Negative for injury, rash, and discoloration, Neuro: Negative for headache, weakness, numbness, tingling, and seizure activity. Psych: Negative for depression, anxiety, suicide ideation, homicidal ideation, and hallucinations, Allergy/Immunology: Negative for hives, rash, and allergies, Endocrine: Negative for neck swelling, polydipsia, polyuria, polyphagia, and marked weight changes, Hematologic/Lymphatic: Negative for swollen nodes, abnormal bleeding, and unusual bruising. 05:21 Respiratory: Positive for Negative for cough, dyspnea on exertion, hemoptysis, orthopnea, pleurisy, shortness of breath, sputum production, wheezing. Exam: 05:21 Constitutional: This is a well developed, well nourished patient who is awake, alert, kdr and in mild distress. Head/Face: Normocephalic, atraumatic. Eyes: Pupils equal round and reactive to light, extra-ocular motions intact. Lids and lashes normal. Conjunctiva and sclera are non-icteric and not injected. Cornea within normal limits. Periorbital areas with no swelling, redness, or edema. Neck: Trachea midline, no thyromegaly or masses palpated, and no cervical lymphadenopathy. Supple, full range of motion without nuchal rigidity, or vertebral point tenderness. No Meningismus. Chest/axilla: Normal chest wall appearance and motion. Nontender with no deformity. No lesions are appreciated. Cardiovascular: Regular rate and rhythm with a normal S1 and S2. No gallops, murmurs, or rubs. Normal PMI, no JVD. No pulse deficits. Respiratory: Lungs have equal breath sounds bilaterally, clear to auscultation and percussion. No rales, rhonchi or wheezes noted. No increased work of breathing, no retractions or nasal flaring. Abdomen/GI: Soft, non-tender, with normal bowel sounds. No distension or tympany. No guarding or rebound. No evidence of tenderness throughout. Back: No spinal tenderness. No costovertebral tenderness. Full range of motion. Skin: Warm, dry with normal turgor. Normal color with no rashes, no lesions, and no evidence of cellulitis. MS/ Extremity: Pulses equal, no cyanosis. Neurovascular intact. Full, normal range of motion. Neuro: Awake and alert, GCS 15, oriented to person, place, time, and situation. Cranial nerves II-XII grossly intact. Motor strength 5/5 in all extremities. Sensory grossly intact. Cerebellar exam normal. Normal gait. Psych: Awake, alert, with orientation to person, place and time. Behavior, mood, and affect are within normal limits. Vital Signs: 03:57 BP 111 / 59; Pulse 136; Resp 18; Temp 99.5(O); Pulse Ox 100% ; Weight 56.7 kg; Height 5 ke1 ft. 4 in. (162.56 cm); Pain 8/10; 06:01 BP 113 / 66; Pulse 118; Resp 18; Temp 98.6(O); Pulse Ox 98% on R/A; Pain 0/10; ke1 03:57 Body Mass Index 21.46 (56.70 kg, 162.56 cm) ke1 MDM: 05:21 Data reviewed: vital signs, nurses notes, lab test result(s), radiologic studies. kdr Counseling: I had a detailed discussion with the patient and/or guardian regarding: the historical points, exam findings, and any diagnostic results supporting the discharge/admit diagnosis, lab results, radiology results, the need for outpatient follow up. 06:28 Patient medically screened. kdr 12/07 04:06 Order name: COVID-19 SARS RT PCR (Document "Date of Onset" if Symptomatic); Complete lp1 Time: 05:18 12/07 04:06 Order name: Flu; Complete Time: 05:18 lp1 12/07 04:20 Order name: Blood Culture Adult (2) kdr 12/07 04:20 Order name: CBC with Diff kdr 12/07 04:20 Order name: CMP; Complete Time: 05:18 kdr 12/07 04:20 Order name: Lactate; Complete Time: 05:18 kdr 12/07 04:20 Order name: Protime (+inr); Complete Time: 05:18 kdr 12/07 04:20 Order name: Ptt, Activated; Complete Time: 05:18 kdr 12/07 04:20 Order name: Urine Culture kdr 12/07 04:20 Order name: Chest Single View XRAY kdr 12/07 04:52 Order name: Urine Dipstick-Ancillary; Complete Time: 05:18 EDMS 12/07 05:03 Order name: Manual Differential EDMS 12/07 04:20 Order name: Cardiac monitoring; Complete Time: 05:05 kdr 12/07 04:20 Order name: IV Saline Lock - Large Bore; Complete Time: 04:41 kdr 12/07 04:20 Order name: Labs collected and sent; Complete Time: 05:02 kdr 12/07 04:20 Order name: O2 Per Protocol; Complete Time: 04:41 kdr 12/07 04:20 Order name: O2 Sat Monitoring; Complete Time: 04:42 kdr 12/07 04:20 Order name: Urine Dipstick-Ancillary (obtain specimen); Complete Time: 05:02 kdr Administered Medications: 04:08 Drug: Tylenol 1000 mg Route: PO; ke1 04:40 Drug: NS 0.9% 1000 ml Route: IV; Rate: 1 bolus; Site: left antecubital; ke1 06:45 Follow up: Response: No adverse reaction; IV Status: Infusion continued; IV Intake: ll3 1000ml Disposition Summary: 12/07/21 06:28 Discharge Ordered Location: Home kdr Problem: new kdr Symptoms: have improved kdr Condition: Stable kdr Diagnosis - SARS-associated coronavirus as the cause of diseases classified elsewhere kdr - kdr Followup: kdr - With: Private Physician - When: 2 - 3 days - Reason: If symptoms return, Further diagnostic work-up, Recheck today's complaints, Continuance of care, Re-evaluation by your physician Discharge Instructions: - Discharge Summary Sheet kdr - COVID-19 kdr - and COVID-19 kdr - 10 Things You Can Do to Manage Your COVID-19 Symptoms at Home - [facility] kdr - COVID-19: Quarantine vs. Isolation - [facility] kdr Forms: - Medication Reconciliation Form kdr - Thank You Letter kdr - Work release form ke1 - Family Work Release mw2 Prescriptions: - Zofran 4 mg Oral Tablet - take 1 tablet by ORAL route every 4-6 hours As needed; 12 tablet; Refills: 0, kdr Product Selection Permitted Signatures: Dispatcher [employer] EDMS Sergio Ramirez MD MD kdr Nanette Galicia RN RN lp1 Emelina Marroquin RN RN ke1 Megan Hogan RN ll3 Corrections: (The following items were deleted from the chart) 04:39 04:20 EKG - Nurse/Tech ordered. kdr ke1 04:40 04:20 Accucheck ordered. kdr ke1
[2021-12-07 07:18] VITALS: BP 113/66; TEMP 98.6; O2SAT 98
[2021-12-07 07:45] LABS: Platelet Estimate ADEQ
[2021-12-07 07:46] LABS: Anisocytosis 1+; Blood Morphology Comment NOTED (NOT SEEN); Hypochromasia 1+
[2021-12-07 07:47] LABS: Rouleau SLIGHT
--- NOTE | 2021-12-07 12:07 | RAD REPORT ---
EXAM DESCRIPTION: RAD - Chest Single View - 12/07/2021 5:09 am CLINICAL HISTORY: The patient is 21 years old and is Female; FEVER TECHNIQUE: Frontal view of the chest. COMPARISON: No relevant prior studies available. FINDINGS: Lungs: Unremarkable. No consolidation. Pleural space: Unremarkable. No pneumothorax. Heart: Unremarkable. Mediastinum: Unremarkable. Bones/joints: Unremarkable. Upper abdomen: Linear opacity overlying the right upper quadrant. IMPRESSION: No acute findings in the chest. Electronically signed by: Hernandez King MD 12/07/2021 5:22 AM CDT Due to temporary technical issues with the PACS/Fluency reporting system, reports are being signed by the in house radiologists without review as a courtesy to insure prompt reporting. The interpreting radiologist is fully responsible for the content of the report.
== END 2021-12-07 06:45 | disposition home or self-care (01) ==
LOC: ER 03:49
DX: O98.512 Other viral diseases complicating pregnancy, second trimester (principal); Z3A.20 20 weeks gestation of pregnancy
CPT/HCPCS: 87040 ×2; 87088; 85025; 87086; 36415; 85610; 83605; 85730; 81003; 80053; 87804 ×2; 71045; U0003; J7030; 96360; 96361; 99284